=== PATIENT | male | born 1990 | race African-American/Black ===

== ENCOUNTER 2016-11-05 13:20 | Emergency (ER) | payer OTHER ==
[2016-11-05 13:25] VITALS: BP 138/75; PULSE 64; TEMP 98.3; BMI 21.1
[2016-11-05] MEDS ORDERED: DIPHTH,PERTUSS(ACELL),TET 0.5 ML DISP.SYRIN IM ONE (14:12)
[2016-11-05] MEDS ORDERED: BACITRACIN 30 GM TUBE TOPICAL OINTMENT TP ONE (14:12)
--- NOTE | 2016-11-05 14:15 | PDOC ---
History of Present Illness - General Chief Complaint: Wound Stated Complaint: LACERATED LT HAND (WOUND) Time Seen by Provider: 11/05/16 13:46 History Source: Patient Exam Limitations: No Limitations - History of Present Illness Initial Comments: 11/05/16 14:13 26 yr male no medical history states he accidentaly stabbed his left palm last night with steak knife trying to depit an avocado. Pt washed the wound last night. Pt has numbness to left ring finger . no bleeding. Timing/Duration: reports: yesterday Severity: Yes: mild Location: reports: hands (left palm ) Past History - Past Medical History Allergies/Adverse Reactions: Allergies Allergy/AdvReac Type Severity Reaction Status Date / Time No Known Allergies Allergy Verified 11/05/16 13:25 Home Medications: Ambulatory Orders NK [No Known Home Medication] 11/05/16 Other medical history: DENIES - Psycho/Social/Smoking Cessation Hx Anxiety: No Suicidal Ideation: No Smoking History: Former smoker Have you smoked in the past 12 months: No If you are a former smoker, when did you quit?: 1 WK AGO Information on smoking cessation initiated: No Hx Alcohol Use: Yes (SOCIAL) Drug/Substance Use Hx: No Substance Use Type: None *Physical Exam - Vital Signs Last Vital Signs Temp Pulse Resp BP Pulse Ox 98.3 F 64 20 138/75 100 11/05/16 13:21 11/05/16 13:21 11/05/16 13:21 11/05/16 13:21 11/05/16 13:21 - Physical Exam General Appearance: Yes: Nourished, Appropriately Dressed HEENT: positive: EOMI, BIANCA, Normal ENT Inspection, TMs Normal, Pharynx Normal Neck: positive: Supple Respiratory/Chest: positive: Lungs Clear, Normal Breath Sounds Cardiovascular: positive: Regular Rhythm, Regular Rate Extremity: positive: Normal Capillary Refill, Other (left palm with 1.0cm puncture wound linear , clean and dry no bleeding ) Integumentary: positive: Normal Color, Dry, Warm Neurologic: positive: Fully Oriented, Alert, Normal Mood/Affect, Normal Response , Motor Strength 5/5, Sensory Deficit (left 4th digit decreased sensation at the tip ) Procedures - Laceration/Wound Repair Left Volar Hand Wound Length: to 2.5 cm Wound Explored: clean Wound's Depth, Shape: into muscle, linear Irrigated w/ Saline: Yes Betadine Prep: Yes Progress: 11/05/16 14:16 bacitracin and bandaid placed wound is greater than 18hrs old no active bleeding, Medical Decision Making - Medical Decision Making 11/05/16 14:16 cc: left palm laceration with knife last night no active bleeding will update tetanus, bacitracin and bandaid placed after copious irrigation, wound is healing well secondary intention will give dc inst verbally to pt and his girlfriend all questions asked and answered at discharge. *DC/Admit/Observation/Transfer Diagnosis at time of Disposition: Laceration of left palm Qualifiers: Encounter type: initial encounter Qualified Code(s): S61.412A - Laceration without foreign body of left hand, initial encounter - Discharge Dispostion Disposition: HOME Condition at time of disposition: Good - Referrals Referrals: Victor Hugo Simon [Primary Care Provider] - Darrian Conrad MD [Staff Physician] - - Patient Instructions Additional Instructions: keep clean and dry wash once a day with antibacterial soap and water then place bacitracin or neopsorin antibiotic ointment and cover with bandaid when at work you can leave open to air when at home follow with the hand surgeon for any worsening numbness or tingling or other complaints return to ER for any redness, increased pain or drainage or any other concerns
[2016-11-05] MEDS ORDERED: BACITRACIN 30 GM TUBE TOPICAL OINTMENT ONE (14:21)
== END 2016-11-05 14:29 | disposition home or self-care (01) ==
LOC: JERFT 13:20
PROC: 3E0234Z Introduction of Serum, Toxoid and Vaccine into Muscle, Percutaneous Approach (ICD-10-PCS; principal; 2016-11-05)
DX: S61.412A Laceration without foreign body of left hand, initial encounter (principal); W26.0XXA Contact with knife, initial encounter; Y93.G1 Activity, food preparation and clean up; Y92.038 Other place in apartment as the place of occurrence of the external cause
CPT/HCPCS: 90471; 90715; 99281-25

== ENCOUNTER 2024-02-26 12:23 | Emergency (ER) | payer SELFPAY ==
[2024-02-26 12:31] VITALS: BP 110/73; PULSE 61; RESP 18; TEMP 98.7; BMI 22.1
[2024-02-26] MEDS ORDERED: BUPRENORPHINE/NALOXONE 2 MG/0.5 MG FILM PACKET ONE (14:18)
[2024-02-26 14:24] LABS: HEMATOCRIT 45.2 % (35.4-49); HEMOGLOBIN 15.2 GM/dL (11.7-16.9); MCH 31.1 pg (25.7-33.7); MCHC 33.6 g/dl (32.0-35.9); MEAN CELL VOLUME 92.7 fl (80-96); MEAN PLT VOLUME 7.3 fl (7.5-11.1); PLATELET COUNT 256 10^3/uL (134-434); RBC 4.88 M/mm3 (4.00-5.60); RDW 12.7 % (11.9-15.9); WHITE BLOOD COUNT 7.8 K/mm3 (4.0-10.0)
[2024-02-26] MEDS: BUPRENORPHINE/NALOXONE 4 MG/1 MG FILM PACKET SL ONE (14:24)
[2024-02-26 14:50] LABS: POTASSIUM 4.7 mmol/L (3.5-5.1)
[2024-02-26 14:52] LABS: ALBUMIN 4.4 g/dl (3.4-5.0); BLOOD UREA NITROGEN 10.1 mg/dL (7-18); CALCIUM 9.6 mg/dL (8.5-10.1)
[2024-02-26 14:57] LABS: BILIRUBIN,TOTAL 1.1 mg/dL (0.2-1); TOT PROT 7.6 g/dl (6.4-8.2)
[2024-02-26 15:09] LABS: COCAINE, UR NEGATIVE (NEGATIVE); OPIATES, URI NEGATIVE (NEGATIVE); URINE BARBITURATES NEGATIVE (NEGATIVE); URINE BENZODIAZEPINES NEGATIVE (NEGATIVE)
[2024-02-26 15:10] LABS: METHADONE, UR NEGATIVE (NEGATIVE); PHENCYCLIDINE,URINE NEGATIVE (NEGATIVE)
[2024-02-26 15:18] LABS: URINE AMPHETAMINES NEGATIVE (NEGATIVE)
[2024-02-26 15:37] LABS: HIV INTERPRETATION NEGATIVE (NEGATIVE)
== END 2024-02-26 14:51 | disposition home or self-care (01) ==
LOC: JER 12:23
DX: F11.93 Opioid use, unspecified with withdrawal (principal)
CPT/HCPCS: 36415; 80053; 80307; 85027; 86803; 87389; 93005; 93010; 99284-25